=== PATIENT | male | born 1950 | race Caucasian/White ===

== ENCOUNTER → 2016-09-23 | Outpatient (CLI) | payer OTHER ==
--- NOTE | 2016-09-23 09:50 | RADRPT ---
PROCEDURE: XR Hip. CLINICAL INDICATION: Bilateral hip pain TECHNIQUE: Three views were obtained. An AP view of the pelvis and frog lateral views of both hip s were performed. COMPARISON: None. FINDINGS: Right side: There is mild central joint space narrowing and there is marginal spurring of the acetab ulum. The bones are osteopenic. There is no evidence for fracture or subluxation. Findings overall are consistent with moderate hip arthrosis, milder than the left side. No erosive changes are seen. There is chronic trochanteric enthesopathy affecting both the greater and lesser trochanters. Left side: Moderate arthrosis of the left hip joint consists of asymmetrical joint space narrowing w ith subcortical sclerosis and cyst formation and there is acetabular marginal spurring resulting in over coverage of the femoral head. There is chronic trochanteric enthesopathy. No erosive changes are seen. No evidence for fracture. IMPRESSION: 1. Left greater than right moderate hip arthrosis. 2. No acute change and no fractures seen. 3. Bilateral trochanteric enthesopathy. RPTAT: XX .Eren Magallon MD, MD Date Time Electronically viewed and signed by .Eren Magallon MD, on 09/23/2016 09:50 .T/
== END | disposition home or self-care (01) ==
LOC: HKI 09:08
PROVIDERS: ATTEND Orthopaedic Surgery
DX: C79.51 Secondary malignant neoplasm of bone (principal)
CPT/HCPCS: 73523; G0463